=== PATIENT | female | born 1950 | race Caucasian/White ===

== ENCOUNTER 2016-09-29 14:40 | Emergency (ER) | payer OTHER ==
--- NOTE | 2016-09-29 15:56 | ED CLINICAL REPORT ---
Clinical Report - Physicians/Mid Levels Merged With [facility] [address] [place] [address] 09/29/2016 14:39 Patient: JONATHAN MOORE Arrived- By private vehicle. Historian- patient. HISTORY OF PRESENT ILLNESS Chief Complaint: WHEEZING. This started today and is still present and worsening. It was abrupt in onset and has been constant but is not gone now. The dyspnea is described as severe. She has had dyspnea at rest. The patient has had sputum production and a cough. No orthopnea or chest pain. See nurses notes for current asthma threapy. Asthma triggers: unknown. (states she has been having a fever, cough, and sore throat. + sick contacts. Patient with hx of asthma.). Similar symptoms previously: Several times. Recent medical care: Not recently seen/assessed. REVIEW OF SYSTEMS The patient has had a nasal discharge, fever and a sore throat. No headache, abdominal pain, diarrhea or skin rash. All systems otherwise negative, except as recorded above. PAST HISTORY Medications: None. Allergies: "maybe others that I cannot remember". Sulfa Antibiotics. SOCIAL HISTORY Former smoker. No alcohol use or drug use. Is a local resident. ADDITIONAL NOTES The nursing notes have been reviewed. PHYSICAL EXAM Vital Signs: 09/29/2016 14:43 BP: 174/106. HR: 96. RR: 40. O2 saturation: 100%. Temp: 97.7 F. Blood pressure normal. Oxygen saturation normal. Appearance: Alert. No acute distress. Eyes: Pupils equal, round and reactive to light. Eyes normal inspection. No conjunctival findings, scleral icterus or pale conjunctivae. ENT: Ears normal. Nose normal. Pharynx normal. Uvula midline. Neck: Normal inspection. Neck supple. CVS: Normal heart rate and rhythm. Heart sounds normal. Pulses normal. Respiratory: Mild respiratory distress with accessory muscle use. No fatigue. Prolonged expirations. Decreased air movement. Expiratory moderate bilateral wheezes diffusely. No rales or rhonchi. Abdomen: Soft and nontender. No organomegaly. Skin: Skin warm and dry. Normal skin color. No rash. Normal skin turgor. LABS, X-RAYS, AND EKG Laboratory Tests: Culture, Strep Screen: (VIVEK: 09/29/2016 15:00) ( MsgRcvd 10/04/2016 12:12) Final results Test Result Flag Units (Reference) RAPID STREP SCREEN - THROAT DATE: 09/29/16 NEGATIVE SCREEN: RAPID STREP SCREEN NEGATIVE; CONFIRMATION TO FOLLOW . BETA STREP NOT A: SCANT GROWTH BETA STREP NOT GROUP A -- DATE: 10/04/16 -- BSTRPNG GROWTH: SCANT GROWTH . PROGRESS AND PROCEDURES Course of Care: the patient is a 65 yo female presenting for wheezing. Constilation of symptoms likely viral URI. Patient with wheezing today. Does not have inhaler at home. States she last had to use one about 2 years ago. Patient with wheezing. Breathing threatment and steroids ordered. for SYmptoms. Lungs do not have signs of consolidations. Rapid strep ordered due to symptoms. Patient agreeabel to work up. Rapid strep negative. Breathing treatment helped significantly. Patient resting in bed no acute distress. Breathing improved. No signs of consolidations. DO not feel this is PE or AMI given rapid improvement with breathing treatment. Patient out of the window for tamiflu given time of onset of symptoms. Discussed with patient work up, diagnosis, home care, follow up, and return precautions. All questions answered. Patient expressed understanding of these instructions and was agreeable to them. Disposition: Discharged. Condition: good. CLINICAL IMPRESSION 09/29/2016 15:35 BP: 169/93. HR: 83. RR: 20. O2 saturation: 95%. Pain level now: 0/10. Hypertensive. Oxygen saturation normal. Acute bronchospasm Essential hypertension. Acute viral pharyngitis history of asthma medication refill for above diagnosis. INSTRUCTIONS Warnings: GENERAL WARNINGS: Return or contact your physician immediately if your condition worsens or changes unexpectedly, if not improving as expected, or if other problems arise. Specifically return if pain, vomiting, bleeding, breathing difficulty or fever. Your Current Medications: CONTINUE TAKING THE FOLLOWING MEDICATIONS: None*. Prescription Medications: Albuterol HFA oral inhaler: inhale 1 puff via spacer every 4 hours as needed for wheezing, difficulty breathing or shortness of breath. Dispense one (1) unit. No refill. Zyrtec 10 mg: take 1 tablet orally every 12 hours as needed for congestion. Dispense twenty (20). No refill. Substitution is permissible. Phenergan w/ Codeine 10mg / 6.25mg per 5 mL: take 1 teaspoon every 6 hours. Dispense sixty (60) mL. No refill. Substitution is permissible. (PRN cough and congestion) Follow-up: Return to the emergency department as needed. Follow up with your doctor in three days. Reason for referral: recheck today's concerns. Summary of care provided to patient via paper. Screening today revealed the patient's blood pressure to be in the hypertensive range. The patient should follow up with a primary care provider for blood pressure management. Understanding of the discharge instructions verbalized by patient. (Electronically signed by Imtiaz Draper Dr. 10/05/2016 14:39)
--- NOTE | 2016-09-29 15:56 | ED NURSING NOTES ---
Clinical Report - Nurses [facility] [address] [place] [place] [address] 09/29/2016 14:39 Patient: JONATHAN MOORE TRIAGE Triage time 14:40. Acuity: LEVEL 3. Chief Complaint: SHORTNESS OF BREATH. 14:48 09/29/16. Alert. --14:48 Oz Ramon R.N. 14:43 09/29/16. BP: 174/106. HR: 96. RR: 40. O2 saturation: 100% on room air. Temp: 97.7 F (oral). Pain level now 0/10. --14:48 Oz Ramon R.N. Weight: 87 kg stated. Height/Length: 65 inches Per Patient. BMI: 32. --14:44 Oz Ramon R.N. Medications None. --14:44 Oz Ramon R.N. Allergies Sulfa Antibiotics. --14:45 Oz Ramon R.N. "maybe others that I cannot remember". --14:48 Oz Ramon R.N. Medication/allergy information source: the patient. --14:48 Oz Ramon R.N. History Primary physician (Agustina). ( fever, cough and sore throat since friday. SOB for the past hour.). This started today. SOCIAL HX: Former smoker, end date 1986. Occasional alcohol use. No drug use. FALL RISK ASSESSMENT: Fall risk assessment completed. No fall risk identified. NUTRITIONAL RISK ASSESSMENT: The nutritional risk assessment revealed no deficiencies. FUNCTIONAL ASSESSMENT: Functional assessment: no impairments noted. LEARNING NEEDS ASSESSMENT: The learning needs assessment revealed no barriers. SKIN INTEGRITY ASSESSMENT: Skin integrity risk assessment completed. No skin integrity risk identified. --14:48 Oz Ramon R.N. Treatment GRAPHIC ART TECHNICIAN: None. --14:48 Oz Ramon R.N. PROBLEMS: Exercise induced asthma. --14:46 Tristen, K Shelby, R.N. ADDITIONAL SURGERIES: Cervical fusion. Cholecystectomy. Hysterectomy. --14:46 Oz Ramon R.N. Interventions ID band on patient. To treatment room. --14:48 Oz Ramon R.N. PHYSICAL ASSESSMENT To room via wheelchair. GENERAL / NEURO / PSYCH: Alert. Oriented X 4. Appears anxious. HEENT: Mucous membranes are pink. RESPIRATORY: Moderate respiratory distress. Cough. CVS: Capillary refill less than 2 seconds. GI / : Abdomen soft and nontender. SKIN: Skin is warm and dry. Normal skin turgor. --14:49 Oz Ramon R.N. NURSING PROGRESS NOTES 14:49 09/29/16. The plan of care for this patient has been created. Patient gowned. Head of bed elevated. Call light placed in reach. Bed placed in lowest position. Brakes of bed on. Patient ready for evaluation- chart flagged. --14:49 Oz Ramon R.N. ( MD and RT in room). --14:51 Oz Ramon R.N. 14:50. ( First contact with pt. pt getting duoneb tx by RT at present, pt states she is feeling better after tx.). --15:01 Romelia Palacio R.N. 15:00 09/29/2016 Decadron (Dexamethasone Sodium Phosphate) IM 10 mg given. Given in the left ventral gluteus. Allergies verified and confirmed 5 rights. --15:08 Romelia Palacio R.N. 15:08 09/29/16. Patient ID band checked for patient name and birthdate: patient confirmed. Throat swab obtained for rapid strep; labeled in the presence of the patient and sent to lab. --15:08 Romelia Palacio R.N. 15:09 09/29/16. BP: 167/103. HR: 83. RR: 22. O2 saturation: 97% on room air. Temp: deferred. Pain level now: 0/10. --15:09 Romelia Palacio R.N. 15:35 09/29/16. BP: 169/93. HR: 83. RR: 20. O2 saturation: 95% on room air. Temp: deferred. Pain level now: 0/10. --15:50 Romelia Palacio R.N. DISPOSITION / DISCHARGE 16:00. Condition at departure: improved and stable. No learning barriers present. Discharge instructions provided and reviewed with the spouse. Reviewed medication(s) (albuterol MDI, zyrtec, phenergan with codeine). Spouse verbalized understanding. Written instructions provided in Polish. The patient was discharged home and accompanied by spouse. She left the Emergency Department ambulatory and via private vehicle. Spouse driving. --16:10 Romelia Palacio R.N. 16:00 09/29/16. BP: 160/94. HR: 91. RR: 18. O2 saturation: 97% on room air. Temp: deferred. Pain level now: 0/10. --16:10 Romelia Palacio R.N. Locked/Released at 09/29/2016 16:11 by Romelia Palacio R.N.
--- NOTE | 2016-09-29 15:56 | ED NURSING NOTES ---
Clinical Report - Nurses [facility] [address] [place] [address] 09/29/2016 14:39 Patient: JONATHAN MOORE TRIAGE Triage time 14:40. Acuity: LEVEL 3. Chief Complaint: SHORTNESS OF BREATH. 14:48 09/29/16. Alert. --14:48 Oz Ramon R.N. 14:43 09/29/16. BP: 174/106. HR: 96. RR: 40. O2 saturation: 100% on room air. Temp: 97.7 F (oral). Pain level now 0/10. --14:48 Oz Ramon R.N. Weight: 87 kg stated. Height/Length: 65 inches Per Patient. BMI: 32. --14:44 Oz Ramon R.N. Medications None. --14:44 Oz Ramon R.N. Allergies Sulfa Antibiotics. --14:45 Oz Ramon R.N. "maybe others that I cannot remember". --14:48 Oz Ramon R.N. Medication/allergy information source: the patient. --14:48 Oz Ramon R.N. History Primary physician (Agustina). ( fever, cough and sore throat since friday. SOB for the past hour.). This started today. SOCIAL HX: Former smoker, end date 1986. Occasional alcohol use. No drug use. FALL RISK ASSESSMENT: Fall risk assessment completed. No fall risk identified. NUTRITIONAL RISK ASSESSMENT: The nutritional risk assessment revealed no deficiencies. FUNCTIONAL ASSESSMENT: Functional assessment: no impairments noted. LEARNING NEEDS ASSESSMENT: The learning needs assessment revealed no barriers. SKIN INTEGRITY ASSESSMENT: Skin integrity risk assessment completed. No skin integrity risk identified. --14:48 Oz Ramon R.N. Treatment HIGH SCHOOL GUIDANCE COUNSELOR: None. --14:48 Oz Ramon R.N. PROBLEMS: Exercise induced asthma. --14:46 Tristen, K Shelby, R.N. ADDITIONAL SURGERIES: Cervical fusion. Cholecystectomy. Hysterectomy. --14:46 Oz Ramon R.N. Interventions ID band on patient. To treatment room. --14:48 Oz Ramon R.N. PHYSICAL ASSESSMENT To room via wheelchair. GENERAL / NEURO / PSYCH: Alert. Oriented X 4. Appears anxious. HEENT: Mucous membranes are pink. RESPIRATORY: Moderate respiratory distress. Cough. CVS: Capillary refill less than 2 seconds. GI / : Abdomen soft and nontender. SKIN: Skin is warm and dry. Normal skin turgor. --14:49 Oz Ramon R.N. NURSING PROGRESS NOTES 14:49 09/29/16. The plan of care for this patient has been created. Patient gowned. Head of bed elevated. Call light placed in reach. Bed placed in lowest position. Brakes of bed on. Patient ready for evaluation- chart flagged. --14:49 Oz Ramon R.N. ( MD and RT in room). --14:51 Oz Ramon R.N. 14:50. ( First contact with pt. pt getting duoneb tx by RT at present, pt states she is feeling better after tx.). --15:01 Romelia Palacio R.N. 15:00 09/29/2016 Decadron (Dexamethasone Sodium Phosphate) IM 10 mg given. Given in the left ventral gluteus. Allergies verified and confirmed 5 rights. --15:08 Romelia Palacio R.N. 15:08 09/29/16. Patient ID band checked for patient name and birthdate: patient confirmed. Throat swab obtained for rapid strep; labeled in the presence of the patient and sent to lab. --15:08 Romelia Palacio R.N. 15:09 09/29/16. BP: 167/103. HR: 83. RR: 22. O2 saturation: 97% on room air. Temp: deferred. Pain level now: 0/10. --15:09 Romelia Palacio R.N. 15:35 09/29/16. BP: 169/93. HR: 83. RR: 20. O2 saturation: 95% on room air. Temp: deferred. Pain level now: 0/10. --15:50 Romelia Palacio R.N. DISPOSITION / DISCHARGE 16:00. Condition at departure: improved and stable. No learning barriers present. Discharge instructions provided and reviewed with the spouse. Reviewed medication(s) (albuterol MDI, zyrtec, phenergan with codeine). Spouse verbalized understanding. Written instructions provided in German. The patient was discharged home and accompanied by spouse. She left the Emergency Department ambulatory and via private vehicle. Spouse driving. --16:10 Romelia Palacio R.N. 16:00 09/29/16. BP: 160/94. HR: 91. RR: 18. O2 saturation: 97% on room air. Temp: deferred. Pain level now: 0/10. --16:10 Romelia Palacio R.N. Locked/Released at 09/29/2016 16:11 by Romelia Palacio R.N.
--- NOTE | 2016-09-29 15:56 | ED ORDER SUMMARY ---
..... Patient: JONATHAN MOORE OrderSheet [facility] VisitID: [id number] [address] [place] [address] 65y, F Registration Date/Time: 09/29/2016 ORDER SHEET Weight: 87.0 kg (stated) Allergies: Sulfa Antibiotics, "maybe others that I cannot remember" GENERAL ORDERS: Culture, Strep Screen Urgent (14:57 09/29/2016 Maria Esther Jones) (Ack 15:05 NHouse ER Tech1) (15:08 DDean R.N.) MEDICATION ORDERS: Decadron IM 10 mg (NOW) (14:56 09/29/2016 Maria Esther Jones) (Ack 14:59 DDean R.N.) (15:08 DDean R.N.) IV FLUIDS: ORDER SHEET NOTES: [Electronically signed by Romelia Palacio R.N. (16:11 09/29/2016)] [Electronically signed by Imtiaz Draper Dr. (14:39 10/05/2016)] [Electronically locked/signed by Romelia Palacio R.N. (16:11 09/29/2016)]
--- NOTE | 2016-09-29 15:56 | ED ORDER SUMMARY ---
..... Patient: JONATHAN MOORE OrderSheet [facility] VisitID: [id number] [address] [place] [address] 65y, F Registration Date/Time: 09/29/2016 ORDER SHEET Weight: 87.0 kg (stated) Allergies: Sulfa Antibiotics, "maybe others that I cannot remember" GENERAL ORDERS: Culture, Strep Screen Urgent (14:57 09/29/2016 Maria Esther Jones) (Ack 15:05 NHouse ER Tech1) (15:08 DDean R.N.) MEDICATION ORDERS: Decadron IM 10 mg (NOW) (14:56 09/29/2016 Maria Esther Jones) (Ack 14:59 DDean R.N.) (15:08 DDean R.N.) IV FLUIDS: ORDER SHEET NOTES: [Electronically signed by Romelia Palacio R.N. (16:11 09/29/2016)] [Electronically signed by Imtiaz Draper Dr. (14:39 10/05/2016)] [Electronically locked/signed by Romelia Palacio R.N. (16:11 09/29/2016)]
--- NOTE | 2016-10-05 14:39 | ED MED RECONCILIATION SUMMARY ---
Patient: JONATHAN MOORE Medication Reconciliation Report [facility] VisitID: [id number] [place] [address] 65y, F Registration Date/Time: 09/29/2016 Weight: 87.0 kg Height/Length: 65 in. BMI: 32.0 ALLERGIES: "maybe others that I cannot remember", Sulfa Antibiotics The patient's Home Medications are listed below: NONE. The source(s) of the original Home Medication information: patient The following Medications were given to the patient in the Emergency Department: Decadron [IM] IM 10 mg, administered: 09/29/2016 3:00:00 PM The following Medications were prescribed to the patient: Albuterol HFA oral inhaler: inhale 1 puff via spacer every 4 hours as needed for wheezing, difficulty breathing or shortness of breath. Dispense one (1) unit. No refill. -- Imtiaz Draper Dr. Zyrtec 10 mg: take 1 tablet orally every 12 hours as needed for congestion. Dispense twenty (20). No refill. Substitution is permissible. -- Imtiaz Draper Dr. Phenergan w/ Codeine 10mg / 6.25mg per 5 mL: take 1 teaspoon every 6 hours. Dispense sixty (60) mL. No refill. Substitution is permissible.(PRN cough and congestion) -- Imtiaz Draper Dr.
--- NOTE | 2016-10-05 14:39 | ED MAR SUMMARY ---
..... Medication Administration Record [facility] [address] [place] [address] Patient: JONATHAN MOORE Visit ID: [id number] 65y, F Weight: 87.0 kg Height/Length: 65 in BMI: 32 ALLERGIES: Sulfa Antibiotics, "maybe others that I cannot remember" Given 15:00 09/29/2016 Hakeem, Shelia León. Medication Administered: DECADRON [IM] (DEXAMETHASONE SODIUM PHOSPHATE), Dose: 10 mg IM. Medication Ordered: Decadron IM 10 mg (NOW).
--- NOTE | 2016-10-05 14:39 | ED MED RECONCILIATION SUMMARY ---
Patient: JONATHAN MOORE Medication Reconciliation Report [facility] VisitID: [id number] [place] [address] 65y, F Registration Date/Time: 09/29/2016 Weight: 87.0 kg Height/Length: 65 in. BMI: 32.0 ALLERGIES: "maybe others that I cannot remember", Sulfa Antibiotics The patient's Home Medications are listed below: NONE. The source(s) of the original Home Medication information: patient The following Medications were given to the patient in the Emergency Department: Decadron [IM] IM 10 mg, administered: 09/29/2016 3:00:00 PM The following Medications were prescribed to the patient: Albuterol HFA oral inhaler: inhale 1 puff via spacer every 4 hours as needed for wheezing, difficulty breathing or shortness of breath. Dispense one (1) unit. No refill. -- Imtiaz Draper Dr. Zyrtec 10 mg: take 1 tablet orally every 12 hours as needed for congestion. Dispense twenty (20). No refill. Substitution is permissible. -- Imitaz Draper Dr. Phenergan w/ Codeine 10mg / 6.25mg per 5 mL: take 1 teaspoon every 6 hours. Dispense sixty (60) mL. No refill. Substitution is permissible.(PRN cough and congestion) -- Imtiaz Draper Dr.
--- NOTE | 2016-10-05 14:39 | ED MAR SUMMARY ---
..... Medication Administration Record [facility] [address] [place] [address] Patient: JONATHAN MOORE Visit ID: [id number] 65y, F Weight: 87.0 kg Height/Length: 65 in BMI: 32 ALLERGIES: Sulfa Antibiotics, "maybe others that I cannot remember" Given 15:00 09/29/2016 Hakeem, Shelia León. Medication Administered: DECADRON [IM] (DEXAMETHASONE SODIUM PHOSPHATE), Dose: 10 mg IM. Medication Ordered: Decadron IM 10 mg (NOW).
--- NOTE | 2016-10-05 14:39 | ED DISCHARGE INSTRUCTIONS ---
Patient: JONATHAN MOORE General Instructions [facility] VisitID: [id number] [place] [address] 65y, F Registration Date/Time: 09/29/2016 09/29/2016 15:35 BP: 169/93. HR: 83. RR: 20. O2 saturation: 95%. Pain level now: 0/10. Hypertensive. Oxygen saturation normal. Acute bronchospasm Essential hypertension. Acute viral pharyngitis history of asthma medication refill for above diagnosis. INSTRUCTIONS Warnings: GENERAL WARNINGS: Return or contact your physician immediately if your condition worsens or changes unexpectedly, if not improving as expected, or if other problems arise. Specifically return if pain, vomiting, bleeding, breathing difficulty or fever. Your Current Medications: CONTINUE TAKING THE FOLLOWING MEDICATIONS: None*. Prescription Medications: Albuterol HFA oral inhaler: inhale 1 puff via spacer every 4 hours as needed for wheezing, difficulty breathing or shortness of breath. Dispense one (1) unit. No refill. Zyrtec 10 mg: take 1 tablet orally every 12 hours as needed for congestion. Dispense twenty (20). No refill. Substitution is permissible. Phenergan w/ Codeine 10mg / 6.25mg per 5 mL: take 1 teaspoon every 6 hours. Dispense sixty (60) mL. No refill. Substitution is permissible. (PRN cough and congestion) Follow-up: Return to the emergency department as needed. Follow up with your doctor in three days. Reason for referral: recheck today's concerns. Summary of care provided to patient via paper. Screening today revealed the patient's blood pressure to be in the hypertensive range. The patient should follow up with a primary care provider for blood pressure management. Understanding of the discharge instructions verbalized by patient. ADDITIONAL INFORMATION Bronchospasm (Adult) Bronchospasm occurs when the airways (bronchial tubes) go into spasm and contract. This makes it hard to breathe and causes wheezing (a high-pitched whistling sound). Bronchospasm can also cause frequent coughing without the wheezing sound. Bronchospasm is due to irritation, inflammation or allergic reaction of the airways. People with asthma get bronchospasm. However, not everyone with bronchospasm has asthma. Being exposed to harmful fumes, a recent case of bronchitis, or a flare-up of chronic emphysema (COPD) may cause the airways to spasm. An episode of bronchospasm may last 7-14 days. Medicine may be prescribed to relax the airways and prevent wheezing. Antibiotics will be prescribed only if your doctor thinks there is a bacterial infection. Antibiotics do not help a viral infection. Home Care: Drink lots of water or other fluids (at least 10 glasses a day) during an attack. This will loosen lung secretions and make it easier to breathe. If you have heart or kidney disease, check with your doctor before you drink extra amounts of fluids. Take prescribed medicine exactly at the times advised. If you have a hand-held inhaler or aerosol breathing medicine, do not use it more than once every four hours, unless told to do so. If prescribed an antibiotic or prednisone, take all of the medicine even if you are feeling better after a few days. Do not smoke. Avoid being exposed to the smoke of others. If you were given an inhaler, use it exactly as directed. If you need to use it more often than prescribed, your condition may be getting worse. Contact your doctor or this facility. Follow Up With Your Doctor, Or As Directed. [ NOTE: If you are age 65 or older, or if you have chronic asthma or COPD, we recommend a PNEUMOCOCCAL VACCINATION every five years and a yearly INFLUENZA VACCINATION (FLU-SHOT) every . Ask your doctor about this.] Get Prompt Medical Attention If Any Of The Following Occur: Increased wheezing or shortness of breath Need to use your inhalers more often than usual without relief Fever of 100.4F (38C) or higher, or as directed by your healthcare provider Coughing up lots of dark-colored or bloody sputum (mucus) Chest pain with each breath You do not start to improve within 24 hours High Blood Pressure -- To Be Confirmed [No Tx] Your blood pressure was higher today than normal. Sometimes anxiety or pain can cause a temporary rise in blood pressure that later returns to normal. If your blood pressure is high on one measurement, this does not mean that you have hypertension (a chronic illness). However, you must have your blood pressure measured again within the next few days to find out if its still high. A normal blood pressure is 120/80 or less. The first (top) number is the "systolic" pressure. The second (bottom) number is the "diastolic" pressure. Hypertension exists when either the top number is 140 or higher, OR the bottom number is 90 or higher on repeated measurements. Blood pressure in the range of 120-140 (systolic) or 80-89 (diastolic) is considered "pre-hypertension". This means your are at risk for getting hypertension. You should have regular blood pressure checks to be sure your blood pressure is not rising. Home Care: Measure your blood pressure on 3 different days and write down the results. This can be done at your doctor's office or this facility. Some pharmacies and grocery stores offer automated blood pressure machines for your use. Follow Up: If your blood pressure is "high" (over 120/80) on 2 out of 3 days, you will need to follow up with your doctor for further evaluation and treatment. DO NOT PUT THIS OFF! Untreated high blood pressure increases the risk for heart attack, also known as acute myocardial infarction, or AMI, and stroke. It is a treatable condition. Get Prompt Medical Attention if any of the following occur: Chest pain or shortness of breath Severe headache Throbbing or rushing sound in the ears Nosebleed Sudden severe abdominal pain Extreme drowsiness, confusion or fainting Dizziness or vertigo (dizziness with spinning sensation) Weakness of an arm or leg or one side of the face Difficulty with speech or vision Viral Pharyngitis (Sore Throat) Your throat pain is due to an infection called "Viral Pharyngitis", commonly known as "Sore Throat". This is a contagious illness. It is spread through the air by coughing, kissing or by touching others after touching your mouth or nose. Symptoms include throat pain worse with swallowing, aching all over, headache and fever. Unlike strep throat, which is a bacterial infection, this illness does not require treatment with an antibiotic. Home Care: If your symptoms are severe, rest at home for the first 2-3 days. Children: Use acetaminophen (Tylenol) for fever, fussiness or discomfort. In infants over six months of age, you may use ibuprofen (Children's Motrin) instead of Tylenol. [NOTE: If your child has chronic liver or kidney disease or ever had a stomach ulcer or GI bleeding, talk with your satish doctor before using these medicines.] (Aspirin should never be used in anyone under 18 years of age who is ill with a fever. It may cause severe liver damage.) Adults: You may use acetaminophen (Tylenol) or ibuprofen (Motrin, Advil) to control pain or fever, unless another medicine was prescribed. [NOTE: If you have chronic liver or kidney disease or ever had a stomach ulcer or GI bleeding, talk with your doctor before using these medicines.] Throat lozenges or sprays (Chloraseptic and others) will reduce pain. Gargling with warm salt water will also reduce throat pain. Dissolve 1/2 teaspoon of salt in 1 glass of warm water. This is especially useful just before meals. Follow Up with your doctor or as directed by our staff if you are not improving over the next week. Get Prompt Medical Attention if any of the following occur: Fever over 100.5F (38.0C) oral, or over 101.5F (38.6C) rectal for more than three days New or worsening ear pain, sinus pain or headache Painful lumps in the back of your neck Unable to swallow liquids or open your mouth wide due to throat pain Trouble breathing or noisy breathing Muffled voice New rash Albuterol Sulfate Pressurized inhalation, suspension What is this medicine? ALBUTEROL (al BYOO ter ole) is a bronchodilator. It helps open up the airways in your lungs to make it easier to breathe. This medicine is used to treat and to prevent bronchospasm. How should I use this medicine? This medicine is for inhalation through the mouth. Follow the directions on your prescription label. Take your medicine at regular intervals. Do not use more often than directed. Make sure that you are using your inhaler correctly. Ask you doctor or health care provider if you have any questions. Talk to your greens or grounds superintendent regarding the use of this medicine in children. Special care may be needed. What side effects may I notice from receiving this medicine? Side effects that you should report to your doctor or health director critical care as soon as possible: allergic reactions like skin rash, itching or hives, swelling of the face, lips, or tongue breathing problems chest pain feeling faint or lightheaded, falls high blood pressure irregular heartbeat fever muscle cramps or weakness pain, tingling, numbness in the hands or feet vomiting Side effects that usually do not require medical attention (report to your doctor or health director critical care if they continue or are bothersome): cough difficulty sleeping headache nervousness or trembling stomach upset stuffy or runny nose throat irritation unusual taste What may interact with this medicine? anti-infectives like chloroquine and pentamidine caffeine cisapride diuretics medicines for colds medicines for depression or for emotional or psychotic conditions medicines for weight loss including some herbal products methadone some antibiotics like clarithromycin, erythromycin, levofloxacin, and linezolid some heart medicines steroid hormones like dexamethasone, cortisone, hydrocortisone theophylline thyroid hormones What if I miss a dose? If you miss a dose, use it as soon as you can. If it is almost time for your next dose, use only that dose. Do not use double or extra doses. Where should I keep my medicine? Keep out of the reach of children. Store at room temperature between 15 and 30 degrees C (59 and 86 degrees F). The contents are under pressure and may burst when exposed to heat or flame. Do not freeze. This medicine does not work as well if it is too cold. Throw away any unused medicine after the expiration date. Inhalers need to be thrown away after the labeled number of puffs have been used or by the expiration date; whichever comes first. Ventolin HFA should be thrown away 12 months after removing from foil pouch. Check the instructions that come with your medicine. What should I tell my health care provider before I take this medicine? They need to know if you have any of the following conditions: diabetes heart disease or irregular heartbeat high blood pressure pheochromocytoma seizures thyroid disease an unusual or allergic reaction to albuterol, levalbuterol, sulfites, other medicines, foods, dyes, or preservatives or trying to get breast-feeding What should I watch for while using this medicine? Tell your doctor or health director critical care if your symptoms do not improve. Do not use extra albuterol. If your asthma or bronchitis gets worse while you are using this medicine, call your doctor right away. If your mouth gets dry try chewing sugarless gum or sucking hard candy. Drink water as directed. Cetirizine Hydrochloride Oral tablet What is this medicine? CETIRIZINE (se TI ra gutierrez) is an antihistamine. This medicine is used to treat or prevent symptoms of allergies. It is also used to help reduce itchy skin rash and hives. How should I use this medicine? Take this medicine by mouth with a glass of water. Follow the directions on the prescription label. You can take this medicine with food or on an empty stomach. Take your medicine at regular times. Do not take more often than directed. You may need to take this medicine for several days before your symptoms improve. Talk to your greens or grounds superintendent regarding the use of this medicine in children. Special care may be needed. While this drug may be prescribed for children as young as 6 years of age for selected conditions, precautions do apply. What side effects may I notice from receiving this medicine? Side effects that you should report to your doctor or health director critical care as soon as possible: allergic reactions like skin rash, itching or hives, swelling of the face, lips, or tongue changes in vision or hearing fast heartbeat high blood pressure infection trouble passing urine or change in the amount of urine Side effects that usually do not require medical attention (report to your doctor or health director critical care if they continue or are bothersome): irritability loss of sleep sore throat stomach pain swelling What may interact with this medicine? other medicines for colds or allergies theophylline What if I miss a dose? If you miss a dose, take it as soon as you can. If it is almost time for your next dose, take only that dose. Do not take double or extra doses. Where should I keep my medicine? Keep out of the reach of children. Store at room temperature between 15 and 30 degrees C (59 and 86 degrees F). Throw away any unused medicine after the expiration date. What should I tell my health care provider before I take this medicine? They need to know if you have any of these conditions: kidney disease liver disease an unusual or allergic reaction to cetirizine, hydroxyzine, other medicines, foods, dyes, or preservatives or trying to get breast-feeding What should I watch for while using this medicine? Visit your doctor or health director critical care for regular checks on your health. Tell your doctor if your symptoms do not improve. You may get drowsy or dizzy. Do not drive, use machinery, or do anything that needs mental alertness until you know how this medicine affects you. Do not stand or sit up quickly, especially if you are an older patient. This reduces the risk of dizzy or fainting spells. Your mouth may get dry. Chewing sugarless gum or sucking hard candy, and drinking plenty of water may help. Contact your doctor if the problem does not go away or is severe. You have been given the following additional information: Bronchospasm (Adult) Hypertension, To Be Confirmed Pharyngitis, Viral Albuterol Sulfate Pressurized inhalation, suspension Cetirizine Hydrochloride Oral tablet (Electronically signed by Imtiaz Draper Dr. 10/05/2016 14:39)
== END 2016-09-29 16:00 | disposition home or self-care (01) ==
LOC: ED SRH 14:40
DX: J98.01 Acute bronchospasm (principal); I10 Essential (primary) hypertension; J02.9 Acute pharyngitis, unspecified; Z87.891 Personal history of nicotine dependence; Z88.2 Allergy status to sulfonamides; J45.909 Unspecified asthma, uncomplicated
CPT/HCPCS: 90154; 90159; 90627